=== PATIENT | female | born 1980 | race Hispanic/Latino ===

== ENCOUNTER → 2017-12-25 | Outpatient (CLI) | payer BC | END | disposition home or self-care (01) | LOC: RAH 14:42 | DX: N63.20 Unspecified lump in the left breast, unspecified quadrant (principal); R92.8 Other abnormal and inconclusive findings on diagnostic imaging of breast | CPT/HCPCS: 76641; 77066 ==

== ENCOUNTER → 2018-07-30 | Outpatient (CLI) | payer BC | END | disposition home or self-care (01) | LOC: RAH 15:27 | DX: N60.02 Solitary cyst of left breast (principal) | CPT/HCPCS: 76641 ==

== ENCOUNTER → 2019-01-28 | Outpatient (CLI) | payer BC | END | disposition home or self-care (01) | LOC: RAH 14:46 | DX: Z09 Encounter for follow-up examination after completed treatment for conditions other than malignant neoplasm (principal); N60.02 Solitary cyst of left breast; N63.22 Unspecified lump in the left breast, upper inner quadrant; N63.21 Unspecified lump in the left breast, upper outer quadrant | CPT/HCPCS: 76641; 77066 ==

== ENCOUNTER → 2020-04-15 | Outpatient (CLI) | payer BC | END | disposition home or self-care (01) | LOC: RAH 13:55 | PROVIDERS: ATTEND Physician Assistant Medical | DX: N60.02 Solitary cyst of left breast (principal); N63.0 Unspecified lump in unspecified breast; N63.10 Unspecified lump in the right breast, unspecified quadrant | CPT/HCPCS: 76641; 77066 ==

== ENCOUNTER → 2021-08-04 | Outpatient (CLI) | payer BC | END | disposition home or self-care (01) | LOC: RAH 14:05 | PROVIDERS: ATTEND Physician Assistant Medical | DX: N64.4 Mastodynia (principal); N60.02 Solitary cyst of left breast; N63.21 Unspecified lump in the left breast, upper outer quadrant | CPT/HCPCS: 76641; 77066 ==

== ENCOUNTER → 2022-12-22 | Outpatient (CLI) | payer BC | END | disposition home or self-care (01) | LOC: RAH 09:39 | PROVIDERS: ATTEND Obstetrics & Gynecology | DX: Z12.31 Encounter for screening mammogram for malignant neoplasm of breast (principal); N63.21 Unspecified lump in the left breast, upper outer quadrant | CPT/HCPCS: 77067 ==

== ENCOUNTER → 2023-02-08 | Outpatient (CLI) | payer BC | END | disposition home or self-care (01) | LOC: RAH 12:10 | PROVIDERS: ATTEND Obstetrics & Gynecology | DX: N63.22 Unspecified lump in the left breast, upper inner quadrant (principal); N63.11 Unspecified lump in the right breast, upper outer quadrant; N60.11 Diffuse cystic mastopathy of right breast; N60.12 Diffuse cystic mastopathy of left breast ==

== ENCOUNTER → 2024-02-14 | Outpatient (CLI) | payer BC | END | disposition home or self-care (01) | LOC: RAH 12:21 | PROVIDERS: ATTEND Obstetrics & Gynecology | DX: N60.01 Solitary cyst of right breast (principal); N60.02 Solitary cyst of left breast; R92.343 Mammographic extreme density, bilateral breasts; N85.2 Hypertrophy of uterus | CPT/HCPCS: 76830; 77066 ==

== ENCOUNTER → 2024-02-15 | Outpatient (CLI) | payer BC ==
[~2024-02-15] MED LIST: GADOTERATE MEGLUMINE 10 MMOL/20 ML VIAL IV ONE
== END | disposition home or self-care (01) ==
LOC: RAH 09:59
PROVIDERS: ATTEND Obstetrics & Gynecology
DX: N63.10 Unspecified lump in the right breast, unspecified quadrant (principal); N63.20 Unspecified lump in the left breast, unspecified quadrant; R92.323 Mammographic fibroglandular density, bilateral breasts
CPT/HCPCS: 77049; A9575